=== PATIENT | male | born 1990 | race Two or more races ===

== ENCOUNTER 2025-01-13 12:58 | Emergency (ER) | payer MEDICAID, OTHER ==
[~2025-01-13] VITALS: Ht 162.6 cm; Wt 87.9 kg
--- NOTE | 2025-01-13 13:11 | ED.PDOC ---
Back pain HPI HPI Comments HPI: Poor Historian. 34-year-old male here for evaluation of left ankle pain. Patient states he had an ankle injury without any fracture in June of last year but yesterday started developing some soreness and then got worse today. He arrives to the ED on crutches with some pain in his left ankle. Denies any fall or trauma since the injury in June. Past Medical History: Past Surgical History: REVIEW OF SYSTEMS: CONSTITUTIONAL: Denies acute: fever, diaphoresis, chills, generalized weakness. HEAD: Denies acute: headache, photophobia Eyes: Denies acute: Double vision, vision loss, eye pain, eye discharge. EARS: Denies acute: tinnitus, hearing loss, ear discharge, ear pain, THROAT: Denies acute: sore throat, swelling, difficulty swallowing , pain with swallowing, change in voice. NECK: Denies acute: neck pain, neck swelling, stiff neck. HEART: Denies acute : chest pain, palpitations, LUNGS: Denies acute: SOB, wheezing, cough, hemoptysis ABDOMEN: Denies acute: abdominal pain, Nausea, Vomiting, diarrhea, melena , hematemesis, hematochezia SKIN: Denies acute: rash, redness, lesions, itchiness. EXTREMITIES: Denies acute: calf pain, numbness, tingling, weakness, Denies acute: Low back pain. Neuro: Denies acute: focal neurological deficit, motor or sensory focal neurological deficit, tremors, seizure like activity, confusion, dizziness, change in mental status, loss of bowel or bladder function, cauda equina like symptoms. : Denies acute: dysuria, hematuria, flank pain, increase in urinary frequency. PSYCH: Denies acute: hallucination, suicidal ideation, homicidal ideation. PHYSICAL EXAM: General: ----mild----acute distress, awake and alert. Head: normocephalic, atraumatic. Neck: supple, trachea is midline, no swelling. Throat: Normal phonation. Eyes:, no erythema, no purulent discharge, no proptosis, no icterus. Heart: regular rate, regular rhythm, no significant murmur appreciated. Lungs: no apparent respiratory distress, Able to speak in full sentences. No wheezing, no rhonchi, no crackles. No stridors Clear to auscultation bilaterally. Abdomen: non tender to palpation, non distended, soft, no guarding, no rebound, + bowel sounds. Neuro: Awake, Alert, oriented to name, self, situation, follows commands GCS=15. Speech is normal. Skin: no petechia, no purpura, no cyanosis, non-pale, not jaundice. Evaluation of the area of complaint: Left ankle pain and minimal swelling. No deformity, no erythema. Patient points to bilateral ankle tenderness to palpation. Patient is neurovascularly intact in the affected extremity. Pedal pulses palpable. Sensory and motor are present. Normal range of motion but has some pain. Makes eye contact. moves all four extremities. Face: no apparent facial droop. Ambulating in the ED with crutches. ED COURSE: DISCLAIMER: This medical document was created using an electronic medical record system with voice recognition software and computerized dictation system. Although this document has been carefully reviewed, there might still be some phonetic and typographical errors. Occasional wrong-word or "sound-alike" substitutions may have occurred due to the inherent limitations of voice recognition software. These areas are purely typographical due to imperfections of the software programs and do not reflect any compromise in the patient's medical care. Please read the chart carefully and recognize, using context, where these substitutions have occurred. Time Seen by MD: 13:04 Allergies: Coded Allergies: NO KNOWN ALLERGIES (Unverified , 01/13/25) Information Source: Patient Was a procedure done? Was a procedure done?: No Back Pain Differential Dx Differential Diagnosis: Other (Fracture, dislocation, ligamental or tendon injury, septic joint, R Goncalves sprain, strain, DVT, compartment syndrome, hemarthrosis, contusion) X-Ray, Labs, Meds, VS Vital Signs Date Time Temp Pulse Resp B/P (MAP) Pulse Ox O2 Delivery O2 Flow Rate FiO2 01/13/25 17:53 98.2 92 19 125/84 (98) 97 98.2 01/13/25 17:53 93 19 01/13/25 13:05 97.7 99 18 141/93 (109) 96 97.7 [facility] [id number] [facility] [address] Ph: [phone] DIAGNOSTIC IMAGING Diagnostic Imaging Report : [id number] Signed PATIENT: NELLY HERNANDEZOACCT: [id number] UNIT: [id number] : 1990 LOC: ER ROOM / BED: / AGE / SEX: 34 / M ADM STATUS: REG ER SERVICE 1309 ORDERING PHYSICIAN: CONRADO MONTES DO PROCEDURE(s): LANKL - L ANKLE 3 VIEW REASON: pain ORDER NUMBER(s): [id number], ACCESSION NUMBER(s): [id number] CLINICAL INDICATION: pain TECHNIQUE: XY L ANKLE 3 VIEW Comparison: None FINDINGS/IMPRESSION: : There is no evidence of acute fracture or dislocation. Soft tissues are unremarkable. ATED BY: HARVEY GARCIA MD DICTATED DATE/TIME: 01/13/251337 SIGNED BY: HARVEY GARCIA MD SIGNED DATE/TIME: 01/13/251337 CC: Time of 1ST Reevaluation: 00:00 Reevaluation 1ST: N/A Patient Education/Counseling: Diagnosis, Treatment Family Education/Counseling: Other Comments Patient is neurovascularly intact in the affected extremity. No calf tenderness. No deformity, no apparent swelling or erythema. Patient presented with the above HPI.--joint ankle pain----workup was initiated. patient was found with the above mentioned diagnosis. the following medications were ordered: please refer to order lists of meds and tests obtained by myself Dr. Montes. Patient ED course and VS have been stabilized. Patient has been reassessed in the ED and remained in a stable condition. Pertinent incidental findings were discussed with the patient and/or family. Patient/family voices understanding and is agreeable with plan. Patient has been observed in the ED adequate length of time to insure improvemen t/stability. Escalation of care considered: Consideration of escalation to observation or admission Patient was DISCHARGED home in a stable condition. All the reports of any imaging studies that were ordered by myself were reviewed by myself. Departure 1 Departure Time of Disposition: 15:17 Impression: Primary Impression: Left ankle pain Disposition: 01 HOME / SELF CARE / HOMELESS Condition: Stable Additional Instructions: Additional instructions: You MUST follow-up with your primary care/family doctor in 1 to 2 days. If you are unable to see your primary care/family doctor, please return to our emergency room for re-assessment and re-evaluation in 1 to 2 days. Return to the emergency room here in our facility or to the nearest ER [facility] if your symptoms change or worsen. CONSULTATIONS: you MUST Follow-up for consultation as soon as possible with: -orthopedic doctor in 1-2 days. Please call for appointment. You MUST call the consultants office yourself to make an appointment. You may need to arrange that through your insurance and/or your primary/family doctor. If you are unable to see the collection systems consultant in 1 to 2 days, you must return to our emergency room (or any other ER of your choice) for re-assessment and re- evaluation. Adequate fluid hydration. Leg elevation. Rest. Use [id number] medications such as ibuprofen with food and Tylenol for pain control as instructed. Below is a copy of your radiological report for follow up: [place] [address] Ph: [phone] DIAGNOSTIC IMAGING Diagnostic Imaging Report : [id number] Signed PATIENT: TANYA HERNANDEZ ACCT: [id number] UNIT: [id number] : 1990 LOC: ER ROOM / BED: / AGE / SEX: 34 / M ADM STATUS: REG ER SERVICE 1309 ORDERING PHYSICIAN: CONRADO MONTES DO PROCEDURE(s): LANKL - L ANKLE 3 VIEW REASON: pain ORDER NUMBER(s): [id number], ACCESSION NUMBER(s): [id number] CLINICAL INDICATION: pain TECHNIQUE: XY L ANKLE 3 VIEW Comparison: None FINDINGS/IMPRESSION: : There is no evidence of acute fracture or dislocation. Soft tissues are unremarkable. ATED BY: HARVEY GARCIA MD DICTATED DATE/TIME: 01/13/251337 SIGNED BY: HARVEY GARCIA MD SIGNED DATE/TIME: 01/13/251337 CC: Discharged With: Self Critical Care Note Critical Care Time?: No I personally scribed for CONRADO MONTES DO ([email or web address]) on 01/13/25 at 14:35. Electronically submitted by Nicolas Corrales ([email or web address]). CONRADO MONTES DO Jan 13, 2025 13:11
--- NOTE | 2025-01-13 13:40 | DVH ---
CLINICAL INDICATION: pain TECHNIQUE: XY L ANKLE 3 VIEW Comparison: None FINDINGS/IMPRESSION: : There is no evidence of acute fracture or dislocation. Soft tissues are unremarkable.
[2025-01-13 17:53] VITALS: BP 125/84; PULSE 93; RESP 19; TEMP 98.2; O2SAT 97
== END 2025-01-13 17:59 | disposition home or self-care (01) ==
LOC: ER 13:08
DX: M25.572 Pain in left ankle and joints of left foot (principal)
CPT/HCPCS: 73610